=== PATIENT | female | born 1970 | race Caucasian/White ===

== ENCOUNTER 2017-06-29 03:04 | Emergency (ER) | payer BC, MEDICAID ==
--- NOTE | 2017-06-29 03:14 | Emergency Department Record ---
History of Present Illness - General Chief Complaint: Chest Pain Stated Complaint: CHEST PAIN Time Seen by Provider: 06/29/17 03:08 Source: Patient Mode of Arrival: Ambulatory Limitations: No limitations - History of Present Illness Initial Comments: 46 yo female presents with pain in the left shoulder, left upper chest, and neck. The onset was with laying down for bed. She laid back and developed a sharp pain. The pain is positional and increases with raising the left arm up. She has had some tingling feeling to her finger tips. No cough or shortness of breath but it hurts to take a deep breath. No history of CAD. The pain started at 9:30pm and has been constant. She hurts to move her neck and feels the pain reproduce. Turning her head to the left causes a pulling sharp pain in the left upper chest. Lifting her left arm up intensifies the pain. PCP is the [facility]. MD Complaint: Chest pain, Other (Left shoulder pain) -: Hour(s) Onset: Other (left chest to shoulder pain when she laid down) Pain Location: Left chest Pain Radiation: LUE Severity: Moderate Quality: Sharp Consistency: Constant Improves With: Remaining still Worsens With: Movement Anginal Symptoms: Other (No shortness of breath or cough) Treatments Prior to Arrival: None - Related Data Previous Rx's Medication Instructions Recorded Cyclobenzaprine HCl [Flexeril] 10 mg PO TID #20 tablet 06/29/17 Naproxen [Naprosyn] 500 mg PO Q12H #30 tab 06/29/17 Allergies Allergy/AdvReac Type Severity Reaction Status Date / Time venom-honey bee Allergy HIVES Unverified 05/09/17 17:00 Review of Systems Constitutional: Denies: Chills, Fever, Malaise, Night sweats, Weakness Eyes: Denies: Eye discharge ENT: Denies: Congestion, Epistaxis, Throat pain Respiratory: Denies: Cough, Dyspnea, Hemoptysis, Stridor, Wheezes Cardiovascular: Reports: Chest pain. Denies: Arrhythmia, Dyspnea on exertion, Edema, Palpitations, Syncope Endocrine: Denies: Fatigue, Polydipsia, Polyuria Gastrointestinal: Denies: Abdominal pain, Diarrhea, Nausea, Vomiting Genitourinary: Denies: Dysuria, Urgency Musculoskeletal: Reports: As per HPI, Arthralgia, Myalgia, Neck pain. Denies: Joint swelling Skin: Denies: Bruising, Change in color, Rash Neurological: Reports: Tingling. Denies: Headache, Numbness, Tremors, Vertigo, Weakness Psychiatric: Denies: Anxiety Hematological/Lymphatic: Denies: Blood Clots, Easy bleeding, Easy bruising, Swollen glands Physical Exam - General General Appearance: Alert, Oriented x3, Cooperative, No acute distress Limitations: No limitations - Head Head exam: Atraumatic, Normocephalic, Normal inspection - Eye Eye exam: Normal appearance, EOMI. negative: Conjunctival injection, Periorbital swelling Pupils: Normal accommodation. negative: Irregular, Unequal - ENT ENT exam: Normal exam, Mucous membranes moist Ear exam: Normal external inspection Nasal Exam: Normal inspection Mouth exam: Normal external inspection Teeth exam: Normal inspection - Neck Neck exam: Normal inspection, Tenderness (tender left paraspina). negative: Full ROM (pain with range of motion, most noted turning to the left), Meningismus - Respiratory Respiratory exam: Normal lung sounds bilaterally, Chest wall tenderness (tender left lateral chest upper quadrant). negative: Accessory muscle use, Decreased breath sounds, Prolonged expiratory, Respiratory distress, Rhonchi, Stridor, Wheezes - Cardiovascular Cardiovascular Exam: Regular rate, Normal rhythm, Normal heart sounds Peripheral Pulses: 2+: Radial (R), Radial (L) - GI/Abdominal GI/Abdominal exam: Soft. negative: Tenderness - Rectal Rectal exam: Deferred - exam: Deferred - Extremities Extremities exam: Normal inspection, Normal capillary refill, Tenderness. negative: Calf tenderness, Full ROM (able to go full ROM but pain limits with lifting of left arm up), Joint swelling, Pedal edema Image of Full Body: 1 - pain with abduction, pain with lifting arm up, pain with external rotation 2 - tender to palpation, pain with ROM - Back Back exam: Reports: Normal inspection, Full ROM, Muscle spasm (left upper trapezius area), Tenderness. Denies: CVA tenderness (R), CVA tenderness (L), Paraspinal tenderness, Vertebral tenderness - Neurological Neurological exam: Alert, CN II-XII intact, Motor sensory deficit, Normal gait, Oriented X3. negative: Abnormal gait, Altered - Psychiatric Psychiatric exam: Normal affect, Normal mood. negative: Agitated, Anxious - Skin Skin exam: Dry, Intact, Normal color, Warm. negative: Cyanosis, Erythema, Mottled Course - Reevaluation(s) Reevaluation #1: EKR 03:08 NSR rate is 78, intervals normal, left axis, ST no acute changes.. NO old. 06/29/17 03:15 06/29/17 03:29 The patient was seen and examined. The pain is somewhat atypical with a very reproducible component. She does have some pain with deep inspiration. 06/29/17 03:44 06/29/17 04:02 The labs are negative The D-dimer is negative 06/29/17 04:19 The patient was rechecked The pain is still present and still very reproducible with palpation and movement. XR ordered 06/29/17 04:52 The XR's were reviewed. No acute changes on the CXR or the shoulder XR on my prelim reviews The patient was again re-examined. The pain is reliably reproduced with position changes and palpation and better if still. DC home with muscle relaxant and NSAID. Medical Decision Making - Lab Data Result diagrams: 06/29/17 03:30 06/29/17 03:30 Disposition Disposition: Discharge Clinical Impression: Chest wall pain Shoulder pain, acute Qualifiers: Laterality: left Qualified Code(s): M25.512 - Pain in left shoulder Disposition: Home, Self-Care Condition: (1) Good Instructions: Musculoskeletal Pain (ED), Chest Wall Pain (ED) Additional Instructions: Call your doctor tomorrow for close follow up Return if worse, cough, short of breath or fever. Prescriptions: Cyclobenzaprine HCl [Flexeril] 10 mg PO TID #20 tablet Naproxen [Naprosyn] 500 mg PO Q12H #30 tab.dr Forms: Patient Portal Access Time of Disposition: 05:01 Quality - Quality Measures Quality Measures: N/A - Blood Pressure Screening Does Patient Have Any of the Following: No Blood Pressure Classification: Pre-Hypertensive BP Reading Systolic Measurement: 154 Diastolic Measurement: 88 Screening for High Blood Pressure: < Pre-Hypertensive BP, F/U Documented > [ G8950] Pre-Hypertensive Follow-up Interventions: Referral to alternative/primary care provider.
[2017-06-29] MEDS ORDERED: 0.9 % SODIUM CHLORIDE 1,000 ML BAG IV ONE (03:17)
[2017-06-29] MEDS ORDERED: KETOROLAC 30 MG/ML VIAL IVP ONE (03:17)
[2017-06-29 03:37] LABS: BASO % 0.4 % (0-6); EOS % 0.8 % (0-6); HEMATOCRIT 43.3 % (35.0-47.0); HEMOGLOBIN 14.7 gm/dl (11.6-16.0); LYMPH % 15.5 % (16-45); MEAN CELL VOLUME 87.1 fl (81-97); MEAN CORPUSCULAR HEMOGLOBIN 29.6 pg (27-33); MEAN CORPUSCULAR HGB CONC 33.9 g/dl (32-36); MEAN PLATELET VOLUME 9.1 fl (7.4-10.4); MONO % 7.3 % (0-9); PLATELET COUNT 414 K/uL (130-400); RED BLOOD COUNT 4.97 M/uL (3.80-5.40); RED CELL DISTRIBUTION WIDTH 13.9 % (11.5-14.5); WHITE BLOOD COUNT W/O DIFF 11.2 K/uL (4.2-12.2)
[2017-06-29 03:49] LABS: BLOOD UREA NITROGEN 9 mg/dL (6-20); CREATININE 0.8 mg/dL (0.5-0.9); EST GLOMERULAR FILTRATION RATE > 60 mL/min; GLUCOSE,RANDOM 108 mg/dL (74-109)
[2017-06-29] MEDS ORDERED: ACETAMINOPHEN 1,000 MG/100 ML BTL IVPB ONE (04:18)
[2017-06-29] MEDS ORDERED: METHYLPREDNISOLONE PF 125MG/VIAL IVP ONE (04:18)
[2017-06-29] MEDS ORDERED: CYCLOBENZAPRINE 10MG TABLET PO ONE (05:01)
--- NOTE | 2017-06-30 07:52 | RADIOLOGY REPORT ---
EXAM: LEFT SHOULDER HISTORY: SHOULDER PAIN. TECHNIQUE: Three views of the left shoulder were obtained. Comparison: None. Encounter: Initial. FINDINGS: Negative for fracture or dislocation. The soft tissues are unremarkable. The joint spaces are preserved. IMPRESSION: NEGATIVE LEFT SHOULDER EXAMINATION. JOB NUMBER: [id number] MTDD
--- NOTE | 2017-06-30 07:53 | RADIOLOGY REPORT ---
EXAM: CHEST, TWO VIEWS HISTORY: CHEST PAIN. TECHNIQUE: Frontal and lateral views of the chest were obtained. Comparison: None. FINDINGS: The heart size is normal. The lungs are clear. No pneumothorax. IMPRESSION: NEGATIVE CHEST EXAMINATION. JOB NUMBER: [id number] MTDD
== END 2017-06-29 05:10 | disposition home or self-care (01) ==
LOC: ER 03:04
DX: R07.89 Other chest pain (principal); M25.512 Pain in left shoulder; R20.2 Paresthesia of skin; M54.2 Cervicalgia; I10 Essential (primary) hypertension
CPT/HCPCS: 99284 ×2; 96365; 96375; 85025; 80048; 84484; 85379; 71020; 73030; 93005; 93010; J1885; J2930; J7030

== ENCOUNTER 2018-12-23 12:53 | Emergency (ER) | payer MEDICAID ==
[2018-12-23] MEDS ORDERED: 0.9 % SODIUM CHLORIDE 1,000 ML BAG IV ONE ×2 (13:13→14:35)
[2018-12-23] MEDS ORDERED: ONDANSETRON HCL IV 4 MG/2 ML VIAL IVP ONE (13:13)
[2018-12-23 13:22] LABS: HEMATOCRIT 51.4 % (35.0-47.0); HEMOGLOBIN 16.8 gm/dl (11.6-16.0); MEAN CELL VOLUME 90.8 fl (81-97); MEAN CORPUSCULAR HGB CONC 32.7 g/dl (32-36); PLATELET COUNT 363 K/uL (130-400); RED BLOOD COUNT 5.66 M/uL (3.80-5.40); RED CELL DISTRIBUTION WIDTH 14.5 % (11.5-14.5); WHITE BLOOD COUNT W/O DIFF 7.1 K/uL (4.2-12.2)
[2018-12-23 13:23] LABS: MEAN CORPUSCULAR HEMOGLOBIN 29.6 pg (27-33)
[2018-12-23 13:30] LABS: PLATELET ESTIMATE NORMAL (NORMAL)
[2018-12-23 13:36] LABS: BILIRUBIN,TOTAL 0.5 mg/dL (0.2-1.0); CREATININE 1.1 mg/dL (0.5-0.9)
[2018-12-23 13:37] LABS: TOTAL PROTEIN 8.6 g/dL (6.6-8.7)
--- NOTE | 2018-12-23 13:41 | Emergency Department Record ---
History of Present Illness - General Chief complaint: Nausea, Vomiting, Diarrhea Stated complaint: NAUSEA,VOMITING,DIARRHEA,CRAMPS,LOW BACK PAIN Time Seen by Provider: 12/23/18 13:13 Source: Patient Mode of Arrival: Ambulatory Limitations: No limitations - History of Present Illness Initial comments: 47 yo female presents with nausea, vomiting, and diarrhea that started early Monday morning. She denies any fevers. She denies any blood in the vomit or in the diarrhea. She is unaware of any known sick contacts. She denies any recent antibiotics. She has periods of cramps that come and go. She is unaware of any chronic abdominal disease history. MD complaint: Abdominal pain, Diarrhea, Nausea, Vomiting Onset/Timin -: Days(s) Description of Vomiting: Watery Description of Diarrhea: Water Associated Abdominal Pain: Yes Location: Diffuse Radiation: Back Severity: Moderate Severity scale (1-10): 8 Quality: Aching, Cramping, Sharp Consistency: Constant Improves with: None Worsens with: Vomiting Associated Symptoms: Nausea/vomiting - Related Data Previous Rx's Medication Instructions Recorded Ondansetron [Zofran Odt] 4 mg PO NOW #15 tab.rapdis 12/23/18 Allergies Allergy/AdvReac Type Severity Reaction Status Date / Time poison sophia extract Allergy HIVES Verified 12/23/18 13:08 venom-honey bee Allergy HIVES Unverified 07/06/18 13:52 Travel Screening - Travel/Exposure Within Last 30 Days Have you traveled within the last 30 days?: No Review of Systems Constitutional: Reports: Malaise, Weakness. Denies: Chills, Fever Eyes: Denies: Eye discharge, Eye pain, Photophobia, Vision change ENT: Denies: Congestion, Throat pain Respiratory: Denies: Cough, Dyspnea, Hemoptysis, Stridor, Wheezes Cardiovascular: Denies: Chest pain, Palpitations, Syncope Endocrine: Reports: Fatigue Gastrointestinal: Reports: Abdominal pain, Diarrhea, Nausea, Vomiting. Denies: Constipation, Hematemesis, Hematochezia, Melena Genitourinary: Denies: Dysuria, Urgency Musculoskeletal: Reports: Back pain. Denies: Arthralgia, Myalgia Skin: Denies: Bruising, Change in color, Rash Neurological: Denies: Headache Psychiatric: Denies: Anxiety Hematological/Lymphatic: Denies: Easy bleeding, Easy bruising, Swollen glands Past Medical History - SOCIAL HISTORY Smoking Status: Never smoker - RESPIRATORY Hx Respiratory Disorders: No - CARDIOVASCULAR Hx Cardio Disorders: Yes Hx Hypertension: Yes Comment:: Murmur - NEURO Hx Neuro Disorders: No - GI Hx GI Disorders: Yes Hx Ulcer: Yes - Hx Genitourinary Disorders: No - ENDOCRINE Hx Endocrine Disorders: No - MUSCULOSKELETAL Hx Musculoskeletal Disorders: Yes Hx Arthritis: Yes Comment:: torn R rotator cuff, - PSYCH Hx Psych Problems: No - HEMATOLOGY/ONCOLOGY Hx Hematology/Oncology Disorders: No Family Medical History Any Significant Family History?: No Physical Exam - General General Appearance: Alert, Oriented x3, Cooperative, No acute distress Limitations: No limitations - Head Head exam: Atraumatic, Normal inspection - Eye Eye exam: Normal appearance, PERRL. negative: Conjunctival injection, Scleral icterus - ENT ENT exam: Normal exam, Mucous membranes moist Ear exam: Normal external inspection Nasal Exam: Normal inspection Mouth exam: Normal external inspection - Neck Neck exam: Normal inspection - Respiratory Respiratory exam: Normal lung sounds bilaterally. negative: Respiratory distress - Cardiovascular Cardiovascular Exam: Regular rate, Normal rhythm, Normal heart sounds - GI/Abdominal GI/Abdominal exam: Soft, Tenderness (Very soft abdomen but diffusely tender, intact bowel sounds throughout the abdomen, the examination is very mild). negative: Distended, Guarding, Rebound, Rigid - Rectal Rectal exam: Deferred - exam: Deferred - Extremities Extremities exam: Normal inspection - Back Back exam: Denies: CVA tenderness (R), CVA tenderness (L) - Neurological Neurological exam: Alert, Oriented X3 - Psychiatric Psychiatric exam: Normal affect, Normal mood - Skin Skin exam: Dry, Intact, Normal color, Warm Course Vital Signs 12/23/18 13:03 Temperature 98.3 F Pulse Rate 102 H Respiratory 20 Rate Blood Pressure 146/80 Pulse Ox 95 - Reevaluation(s) Reevaluation #1: 12/23/18 13:46 The labs were reviewed The CBC was unremarkable for significant changes The CMP was negative for acute significant changes The Lipase is normal The patient was updated on the results No current nausea or pain 12/23/18 15:44 The 2nd liter is complete No vomiting and the nausea is well controlled She has only had one loose stool We discussed DC, reasons for return in the 24 hours for a recheck and close follow up. Medical Decision Making - Lab Data Result diagrams: 12/23/18 13:10 12/23/18 13:10 Lab Results 12/23/18 Range/Units 13:10 WBC 7.1 (4.2-12.2) K/uL RBC 5.66 H (3.80-5.40) M/uL Hgb 16.8 H (11.6-16.0) gm/dl Hct 51.4 H (35.0-47.0) % MCV 90.8 (81-97) fl MCH 29.6 (27-33) pg MCHC 32.7 (32-36) g/dl RDW 14.5 (11.5-14.5) % Plt Count 363 (130-400) K/uL MPV 9.0 (7.4-10.4) fl Neutrophils % 77.0 (47-80) % Band Neutrophils % 3.0 (0-5) % Eosinophils % Not Reportable Basophils % Not Reportable Lymphocytes 13.0 L (16-45) % Monocytes 7.0 (0-9) % Platelet Estimate Normal (NORMAL) RBC Morphology Normal Disposition Disposition: Discharge Clinical Impression: Nausea vomiting and diarrhea Disposition: Home, Self-Care Instructions: Acute Nausea and Vomiting (ED) Additional Instructions: Call your doctor for the next available follow up appointment Return to the ER for a recheck if worse, any new concerns or questions, persistent vomiting, fever or pain Take the prescriptions provided as directed You may take the Zofran every 4 hours if needed Review this ER visit and the tests performed with your family doctor Prescriptions: Ondansetron [Zofran Odt] 4 mg PO NOW #15 tab.rapdis Forms: Patient Portal Access Time of Disposition: 15:46 Quality - Quality Measures Quality Measures: N/A - Blood Pressure Screening Does Patient Have Any of the Following: No Blood Pressure Classification: Hypertensive Reading Systolic Measurement: 141 Diastolic Measurement: 79 Screening for High Blood Pressure: < Pre-Hypertensive BP, F/U Documented > [ G8950] Pre-Hypertensive Follow-up Interventions: Referral to alternative/primary care provider.
[2018-12-23 13:42] LABS: ALB/GLOB RATIO 1.2 (1.1-1.8); ALBUMIN 4.7 g/dL (4.0-5.0)
[2018-12-23 15:25] LABS: URINE APPEARANCE CLEAR; URINE BILIRUBIN SMALL (NEGATIVE); URINE BLOOD MODERATE (NEGATIVE); URINE COLOR YELLOW; URINE GLUCOSE (UA) NEGATIVE (NEGATIVE); URINE KETONE 40 mg/dL (NEGATIVE); URINE LEUKOCYTE ESTERASE NEGATIVE (NEGATIVE); URINE NITRITE NEGATIVE (NEGATIVE); URINE PROTEIN NEGATIVE (NEGATIVE); URINE UROBILINOGEN 0.2 E.U./dL (0.20 - 1.00)
[2018-12-23 15:29] LABS: URINE RBC 16 - 25 (NONE SEEN); URINE WBC NONE SEEN (0-2/hpf)
== END 2018-12-23 16:00 | disposition home or self-care (01) ==
LOC: ER 12:53
DX: R11.2 Nausea with vomiting, unspecified (principal); R19.7 Diarrhea, unspecified; R10.9 Unspecified abdominal pain; M54.5 Low back pain; I10 Essential (primary) hypertension
CPT/HCPCS: 80053; 81001; 83690; 85027; 96361; 96374; 99284; J2405; J7030

== ENCOUNTER 2019-01-16 01:51 | Emergency (ER) | payer MEDICAID ==
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
--- NOTE | 2019-01-17 09:48 | RADIOLOGY REPORT ---
EXAM: ABDOMEN, TWO VIEWS HISTORY: FOREIGN BODY IN RECTUM. TECHNIQUE: AP and lateral views of the abdomen/pelvis are obtained. Comparison: Two view radiographic examination of the abdomen dated 08/11/15. FINDINGS: There is a foreign body within the lower midline pelvis posteriorly consistent with a rectal foreign body. Much of this does have metallic density. This measures approximately 12 cm in length x 1.9 cm in diameter. Gas and stool are noted throughout a nondilated colon to the level of the rectum. No bowel dilatation. No mass or organomegaly. No suspicious calcification. The osseous structures are intact. IMPRESSION: TUBULAR RECTAL FOREIGN BODY, DESCRIBED ABOVE. JOB NUMBER: [id number] MTDD
== END 2019-01-16 03:35 | disposition home or self-care (01) ==
LOC: ER 01:51
DX: T18.5XXA Foreign body in anus and rectum, initial encounter (principal); R10.30 Lower abdominal pain, unspecified; I10 Essential (primary) hypertension
CPT/HCPCS: 74018; 74019; 99283; 99284